=== PATIENT | female | born 1995 | race Caucasian/White ===

== ENCOUNTER 2021-05-02 08:18 | Inpatient (IN) | payer OTHER ==
[2021-05-02 10:00] LABS: BASO % 0.3 % (0-2.0); EOS % 1.4 % (0-4.5); HEMATOCRIT 36.4 % (32.4-45.2); HEMOGLOBIN 12.5 GM/dL (10.7-15.3); LYMPH % 16.9 % (8-40); MCH 31.1 pg (25.7-33.7); MCHC 34.4 g/dl (32.0-36.0); MEAN CELL VOLUME 90.6 fl (80-96); MEAN PLT VOLUME 9.7 fl (7.5-11.1); MONO % 6.4 % (3.8-10.2); PLATELET COUNT 134 10^3/uL (134-434); RBC 4.02 M/mm3 (3.60-5.2); RDW 13.5 % (11.6-15.6); WHITE BLOOD COUNT 7.2 K/mm3 (4.0-10.0)
[2021-05-02 10:07] LABS: CALCIUM 8.7 mg/dL (8.5-10.1)
[2021-05-02 10:08] LABS: BLOOD UREA NITROGEN 10.7 mg/dL (7-18)
[2021-05-02 10:10] LABS: INR 0.87 (0.83-1.09); PROTHROMBIN TIME (PATIENT) 10.2 SEC (9.7-13.0)
[2021-05-02 10:11] LABS: CREATININE 0.5 mg/dL (0.55-1.3)
[2021-05-02 10:13] LABS: ACTIVATED PTT 25.9 SECONDS (25.2-36.5)
[2021-05-02 10:15] VITALS: BMI 28.3
[2021-05-02] MEDS: DEXTROSE 5%-LACTATED RINGERS 1,000 ML IV SCH ×2 (13:30→21:35)
[2021-05-02] MEDS ORDERED: DINOPROSTONE 10 MG VAGINAL SUPPOSITORY VG ONE (14:27)
[2021-05-02] MEDS ORDERED: BUTORPHANOL TARTRATE 1 MG/ML VIAL IVPUSH PRN (14:30)
[2021-05-02] MEDS ORDERED: PROMETHAZINE HCL 25 MG/1 ML VIAL IVPB ONE (14:32)
[2021-05-03] MEDS: DEXTROSE 5%-LACTATED RINGERS 1,000 ML IV SCH ×2 (06:45→15:24)
[2021-05-03] MEDS ORDERED: DINOPROSTONE 10 MG VAGINAL SUPPOSITORY VG ONE (07:08)
[2021-05-03] MEDS ORDERED: OXYTOCIN 30 UNITS in 0.9% NS 30 UNIT/500 ML INFUS.BAG IVPB SCH (12:00)
[2021-05-03] MEDS ORDERED: CITRIC ACID/SODIUM CITRATE 30 ML UNIT-DOSE CUP PO ONE (19:44)
[2021-05-03] MEDS ORDERED: ceFAZolin SODIUM 1 GM VIAL ONE (20:47)
[2021-05-03] MEDS ORDERED: OXYTOCIN 20 UNITS in 0.9% NS 20 UNIT/1,000 ML INFUS.BAG IV ONE (20:47)
[2021-05-03] MEDS ORDERED: morphine SULFATE (PF) 1 MG/2 ML SYRINGE ONE (20:49)
[2021-05-03] MEDS ORDERED: OXYTOCIN 10 UNITS/ML VIAL ONE (21:14)
[2021-05-03] MEDS ORDERED: ONDANSETRON 4 MG/2 ML VIAL ONE (21:14)
[2021-05-03] MEDS ORDERED: KETOROLAC TROMETHAMINE 30 MG/1 ML VIAL ONE (21:14)
[2021-05-03 22:13] LABS: CORD BASE EXCESS -5.6 mmol/L (0-2); CORD HCO3 21.3 mmHg (20-29); CORD PCO2 46.6 mmHg (30-78); CORD pH 7.278 (7.14-7.44)
[2021-05-03 22:14] LABS: CORD BASE EXCESS -7.6 mmol/L (0-2); CORD HCO3 19.5 mmHg (20-29); CORD PCO2 45.1 mmHg (30-78); CORD pH 7.253 (7.14-7.44)
[2021-05-03] MEDS ORDERED: METHYLERGONOVINE MALEATE 0.2 MG/1 ML AMP IM PRN (22:27)
[2021-05-03] MEDS ORDERED: ACETAMINOPHEN 325 MG TABLET (FP) PO PRN (22:27)
[2021-05-03] MEDS ORDERED: MEASLES,MUMPS&RUBELLA VACC/PF 0.5 ML VIAL SQ ONE (22:28)
[2021-05-03] MEDS ORDERED: OXYTOCIN 20 UNITS in 0.9% NS 20 UNIT/1,000 ML INFUS.BAG IV SCH (22:30)
[2021-05-04] MEDS: IBUPROFEN 600 MG TABLET (FP) PO PRN ×3 (01:13→17:15)
[2021-05-04] MEDS: SIMETHICONE 80 MG TAB.CHEW (FP) PO PRN ×2 (01:13→09:56)
[2021-05-04] MEDS ORDERED: OXYTOCIN 20 UNITS in 0.9% NS 20 UNIT/1,000 ML INFUS.BAG IV ONE (01:25)
[2021-05-04 08:17] LABS: BASO % 0.2 % (0-2.0); EOS % 0.6 % (0-4.5); HEMATOCRIT 30.4 % (32.4-45.2); HEMOGLOBIN 10.7 GM/dL (10.7-15.3); LYMPH % 12.8 % (8-40); MEAN CELL VOLUME 91.4 fl (80-96); MONO % 7.3 % (3.8-10.2); NEUT % 79.1 % (42.8-82.8); PLATELET COUNT 96 10^3/uL (134-434); RBC 3.33 M/mm3 (3.60-5.2); RDW 13.4 % (11.6-15.6); WHITE BLOOD COUNT 6.7 K/mm3 (4.0-10.0)
[2021-05-04] MEDS ORDERED: oxyCODONE HCL 5 MG TABLET PO PRN ×2 (10:27)
[2021-05-04] MEDS ORDERED: BISACODYL 10 MG SUPP.RECT RC PRN (22:27)
[2021-05-05] MEDS: IBUPROFEN 600 MG TABLET (FP) PO PRN ×4 (01:13→20:14)
[2021-05-05] MEDS: SIMETHICONE 80 MG TAB.CHEW (FP) PO PRN ×4 (01:14→20:15)
[2021-05-06] MEDS: IBUPROFEN 600 MG TABLET (FP) PO PRN ×3 (02:35→12:45)
[2021-05-06] MEDS: SIMETHICONE 80 MG TAB.CHEW (FP) PO PRN ×3 (02:37→12:45)
[2021-05-06 09:05] LABS: BASO % 0.3 % (0-2.0); EOS % 2.1 % (0-4.5); HEMATOCRIT 30.2 % (32.4-45.2); HEMOGLOBIN 10.4 GM/dL (10.7-15.3); MCH 31.7 pg (25.7-33.7); MCHC 34.6 g/dl (32.0-36.0); MEAN CELL VOLUME 91.8 fl (80-96); MEAN PLT VOLUME 9.2 fl (7.5-11.1); MONO % 5.5 % (3.8-10.2); NEUT % 77.1 % (42.8-82.8); PLATELET COUNT 130 10^3/uL (134-434); RBC 3.29 M/mm3 (3.60-5.2); RDW 13.6 % (11.6-15.6); WHITE BLOOD COUNT 5.3 K/mm3 (4.0-10.0)
[2021-05-06 11:06] VITALS: BP 127/87; PULSE 81; TEMP 97.4
== END 2021-05-06 13:12 | disposition home or self-care (01) | DRG 540 ==
LOC: JLDR 08:18 → J3W 05-04 00:05
PROVIDERS: ADMIT Internal Medicine; ATTEND Internal Medicine
PROC: 10D00Z1 Extraction of Products of Conception, Low, Open Approach (ICD-10-PCS; principal; 2021-05-03)
PROC: 3E0P7VZ Introduction of Hormone into Female Reproductive, Via Natural or Artificial Opening (ICD-10-PCS; 2021-05-03)
DX: O62.0 Primary inadequate contractions (principal); Z3A.39 39 weeks gestation of pregnancy; Z37.0 Single live birth
CPT/HCPCS: 36415; 36600; 80048; 82803; 85025; 85610; 85730; 86780; 86850; 86900; 86901; 87340; 88307-TC; C9803; U0003; U0005